=== PATIENT | male | born 1995 | race Caucasian/White ===

== ENCOUNTER 2019-01-13 12:25 | Emergency (ER) | payer OTHER ==
[2019-01-13 12:42] VITALS: BP 119/78
--- NOTE | 2019-01-13 12:59 | EDPHY ---
H & P Stated Complaint: Sore throat, mostly L throat pain x 5 days Time Seen by Provider: 01/13/19 12:48 HPI/ROS: Chief Complaint: Throat pain HPI: Healthy 23-year-old male presenting with 5 days of sore throat, pain with swallowing and throat clearing. No fevers or chills. No cough. No nausea or vomiting. No body aches. He did get a flu shot this year. No significant history of strep. He is up-to-date on his other immunizations. It hurts to swallow but he is able to swallow. Pain is primarily in the left hand side. No change in his voice. ROS: 10 systems were reviewed and were negative except those elements noted in the HPI. PMH: Denies Social History: No smoking, occasional alcohol, no recreational drug use Family History: non-contributory Physical Exam: Gen: Awake, Alert, No Distress HEENT: Ears: Normal Nose: no rhinorrhea Eyes: PERRLA, EOMI Mouth: Moist mucosa oropharynx has mild erythema, symmetrical, uvula midline, no peritonsillar swelling. Neck: Supple, no JVD Chest: nontender, lungs clear to auscultation Heart: S1, S2 normal, no murmur Abd: Soft, non-tender, no guarding Back: no CVA tenderness, no midline tenderness Ext: no edema, non-tender Skin: no rash Neuro: CN II-XII intact, Sensation grossly intact, Strength 5/5 in bilateral upper and lower extremities - Personal History Current Tetanus Diphtheria and Acellular Pertussis (TDAP): Yes Tetanus Vaccine Date: within 10 years - Medical/Surgical History Hx Asthma: No Hx Chronic Respiratory Disease: No Hx Diabetes: No Hx Cardiac Disease: No Hx Renal Disease: No Hx Cirrhosis: No Hx Alcoholism: No Hx HIV/AIDS: No Hx Splenectomy or Spleen Trauma: No Other PMH: ADD. Depression - Social History Smoking Status: Never smoked Constitutional: Initial Vital Signs Temperature (C) 36.6 C 01/13/19 12:37 Heart Rate 75 01/13/19 12:37 Respiratory Rate 16 01/13/19 12:37 Blood Pressure 119/78 01/13/19 12:37 O2 Sat (%) 96 01/13/19 12:37 O2 Delivery Mode Room Air Allergies/Adverse Reactions: venom-wasp [wasp venom] Allergy (Verified 01/13/19 12:43) Pt reports swelling Home Medications: Medication Instructions Recorded NK [No Known Home Meds] 01/13/19 Medical Decision Making ED Course/Re-evaluation: Rapid strep is negative. Will discharge with follow-up as an outpatient. Symptoms consistent with viral URI. - Data Points Point of Care Test Results: Strep Strep Throat Swab Collection 01/13/19 Date Strep Throat Swab Swab 12:42 Collection Time Strep Result Not Detected Departure - Departure Disposition: Home, Routine, Self-Care Clinical Impression: Viral URI Condition: Good Instructions: Upper Respiratory Infection (ED) Additional Instructions: Alternate acetaminophen (1000 mg) with ibuprofen (400 mg) every 4 hours as needed for fevers, chills, aches or pain. Referrals: NONE *PRIMARY CARE P,. [Primary Care Provider] - As per Instructions
== END 2019-01-13 13:19 | disposition home or self-care (01) ==
LOC: CED 12:25
DX: J06.9 Acute upper respiratory infection, unspecified (principal); M79.642 Pain in left hand
CPT/HCPCS: 99282-ER